=== PATIENT | male | born 1975 | race African-American/Black ===

== ENCOUNTER 2023-07-11 02:02 | Observation (INO) ==
[2023-07-11] MEDS: Albuterol/Ipratropium NEB.SOL (2.5/0.5 MG) 3 ML NEB.SOLN INH ONE (02:23)
[2023-07-11] MEDS: Albuterol/Ipratropium NEB.SOL (2.5/0.5 MG) 3 ML NEB.SOLN INH SCH ×2 (02:58→07:30)
[2023-07-11] MEDS: Magnesium Sulfate 2 gm BAG 2 GM/50 ML BAG IVPB ONE (03:54)
[2023-07-11] MEDS ORDERED: Ondansetron 4 mg VIAL 2 MG/ML 2 ml VIAL IV PRN (04:39)
[2023-07-11] MEDS ORDERED: Albuterol/Ipratropium NEB.SOL (2.5/0.5 MG) 3 ML NEB.SOLN INH PRN (04:59)
[2023-07-11] MEDS: Albuterol/Ipratropium NEB.SOL (2.5/0.5 MG) 3 ML NEB.SOLN ONE (07:47)
[2023-07-11] MEDS: methylPREDNISolone SOD SUCC 40 mg/ml 1 ml VIAL IV SCH ×2 (09:35→17:39)
[2023-07-11] MEDS ORDERED: methylPREDNISolone SOD SUCC 40 mg/ml 1 ml VIAL IV SCH (18:00)
[2023-07-12] MEDS: Albuterol HFA INHALER 8 gm MDI INH PRN (05:54)
[2023-07-12 13:10] VITALS: BP 138/81
== END 2023-07-12 16:05 | disposition home or self-care (01) ==
LOC: EDHOLD 02:02 → ED 02:02 → SUATTDRO 04:39 → MED 06:06
PROVIDERS: ADMIT Internal Medicine; ATTEND Hospitalist